=== PATIENT | female | born 1975 | race Caucasian/White ===

== ENCOUNTER 2018-04-26 18:56 | Inpatient (IN) | payer OTHER ==
[~2018-04-26] VITALS: Ht 172.7 cm; Wt 115.8 kg
[2018-04-26] MEDS ORDERED: WELLBUTRIN (19:24)
[2018-04-26] MEDS ORDERED: PROPANOLOL (19:24)
[2018-04-26] MEDS ORDERED: NORTRIPTYLINE (19:24)
[2018-04-26] MEDS ORDERED: MAXALT (19:24)
[2018-04-26] MEDS ORDERED: GABAPENTIN (19:24)
[2018-04-26 20:15] LABS: BASOPHILS # (AUTO) 0.1 K/uL (0.0-8.0); EOSINOPHILS # (AUTO) 0.3 K/uL (0.0-0.7); EOSINOPHILS % (AUTO) 4.5 % (0.0-7.0); HEMATOCRIT 37.5 % (31.2-41.9); HEMOGLOBIN 12.7 g/dL (10.9-14.3); LYMPHOCYTES # (AUTO) 2.2 K/uL (20.0-40.0); LYMPHOCYTES % (AUTO) 37.3 % (20.5-51.5); MEAN CORPUSCULAR HEMOGLOBIN 29.8 uug (24.7-32.8); MEAN CORPUSCULAR HGB CONC 34 g/dL (32.3-35.6); MONOCYTES # (AUTO) 0.4 K/uL (2.0-10.0); MONOCYTES % (AUTO) 7.1 % (0.0-11.0); NEUTROPHILS # (AUTO) 2.9 K/uL (1.8-8.9); NEUTROPHILS % (AUTO) 50.1 % (38.5-71.5); PLATELET COUNT (AUTO) 209 K/uL (179-408); RED BLOOD CELL COUNT(AUTO) 4.26 MIL/uL (3.63-4.92); WHITE BLOOD COUNT (AUTO) 5.8 K/uL (3.8-11.8)
[2018-04-26 20:22] LABS: POTASSIUM 4.1 mmol/L (3.5-5.1)
[2018-04-26 20:34] LABS: BILIRUBIN,DIRECT 0.1 mg/dL (0.0-0.2); BILIRUBIN,TOTAL 0.3 mg/dL (0.2-1.0); TOTAL PROTEIN, SERUM 7.2 g/dL (6.4-8.2)
[2018-04-26] MEDS ORDERED: ASPIRIN 325 MG TABLET PO ONE (21:00)
[2018-04-26] MEDS ORDERED: FUROSEMIDE 20 MG/2 ML VIAL IV ONE (21:30)
[2018-04-26] MEDS ORDERED: ENOXAPARIN SODIUM 100 MG/ML DISP.SYRIN SQ ONE ×2 (21:45→22:04)
[2018-04-26] MEDS ORDERED: NORMAL SALINE FLUSH 10 ML DISP.SYRIN ONE (22:02)
[2018-04-26] MEDS ORDERED: IOHEXOL 350 100 ML INFUS..BTL ONE (22:02)
[2018-04-26] MEDS ORDERED: IV NORMAL SALINE 250 ML IV ONE (22:02)
[2018-04-26] MEDS ORDERED: SWABABLE VALVE TRANSFER SET EA MC ONE (22:02)
[2018-04-26] MEDS ORDERED: FUROSEMIDE 20 MG/2 ML VIAL ONE (22:04)
[2018-04-26] MEDS ORDERED: ASPIRIN 325 MG TABLET ONE (22:04)
--- NOTE | 2018-04-26 22:28 | NUR ---
Pt went down to radiology dept for CTA.
--- NOTE | 2018-04-26 23:24 | NUR ---
Pt. admitted to Telemetry , under care of Mariama QIUNTEROS. Diagnosis: Non-STEMI elevation [place] Belongs List completed.
[2018-04-26] MEDS ORDERED: MAGNESIUM HYDROXIDE 30 ML LIQUID UDC PO PRN (23:45)
[2018-04-26] MEDS ORDERED: ACETAMINOPHEN 325 MG TABLET PO PRN (23:45)
[2018-04-26] MEDS ORDERED: MORPHINE SULFATE 4 MG/1 ML DISP.SYRIN IV PRN (23:45)
[2018-04-26] MEDS ORDERED: NITROGLYCERIN 0.4 MG/TAB BOTTLE SL PRN (23:45)
[2018-04-26] MEDS ORDERED: ONDANSETRON 4 MG/2 ML VIAL IV PRN (23:45)
[2018-04-26] MEDS ORDERED: HYDROCODONE/APAP 5-325MG TABLET PO PRN (23:45)
--- NOTE | 2018-04-27 00:04 | NUR ---
Pt transferred to Tele unit in stable condition. All belongings with pt.
--- NOTE | 2018-04-27 00:05 | NUR ---
RECEIVED ADMISSION REPORT FROM KARTIK ESTEVEZ, IN ER. PT ARRIVED ON TELE FLOOR VIA W/C. PT IS A/OX4, NO COMPLAINTS AT THIS TIME. PT IS STABLE, V/S WNL. SELF-AMBULATED TO BED. NSR ON TELE MONITORING. PT'S BOYFRIEND IS CURRENTLY AT BEDSIDE. BED IN LOW AND LOCKED POSITION WITH BILATERAL SIDERAILS UP. CALL LIGHT WITHIN REACH. PT ORIENTED TO UNIT. WILL CONTINUE TO MONITOR.
[2018-04-27 00:37] VITALS: BP 116/85
[2018-04-27 04:32] VITALS: BP 107/61
--- NOTE | 2018-04-27 06:52 | NUR ---
PT SLEPT COMFORTABLY THROUGH THE NIGHT. NO COMPLAINTS. V/S WNL. NSR ON TELE MONITORING. PT'S TREND TROPONIN AT 0100 WAS 0.144. NELI EDWARDS IS AWARE. PT DENIES C/P, SOB. WILL CONTINUE TO MONITOR.
--- NOTE | 2018-04-27 07:10 | NUR ---
Received patient in bed, awake, alert and oriented x4, in no acute distress. Denies chest pain or SOB at this time. IV site on LAC intact. NSR on monitor.
[2018-04-27 08:16] LABS: BASOPHILS # (AUTO) 0.1 K/uL (0.0-8.0); BASOPHILS % (AUTO) 0.9 % (0.0-2.0); EOSINOPHILS # (AUTO) 0.3 K/uL (0.0-0.7); EOSINOPHILS % (AUTO) 4.7 % (0.0-7.0); HEMATOCRIT 36.1 % (31.2-41.9); HEMOGLOBIN 12.2 g/dL (10.9-14.3); LYMPHOCYTES # (AUTO) 2.4 K/uL (20.0-40.0); LYMPHOCYTES % (AUTO) 41.1 % (20.5-51.5); MEAN CORPUSCULAR HEMOGLOBIN 29.7 uug (24.7-32.8); MEAN CORPUSCULAR HGB CONC 34 g/dL (32.3-35.6); MEAN CORPUSCULAR VOLUME 88.1 fL (75.5-95.3); MONOCYTES # (AUTO) 0.6 K/uL (2.0-10.0); MONOCYTES % (AUTO) 9.9 % (0.0-11.0); NEUTROPHILS # (AUTO) 2.6 K/uL (1.8-8.9); NEUTROPHILS % (AUTO) 43.4 % (38.5-71.5); PHOSPHOROUS 4.4 mg/dL (2.5-4.9); PLATELET COUNT (AUTO) 188 K/uL (179-408); POTASSIUM 3.7 mmol/L (3.5-5.1); WHITE BLOOD COUNT (AUTO) 5.9 K/uL (3.8-11.8)
[2018-04-27] MEDS ORDERED: ASPIRIN 81 MG TAB.CHEW PO SCH (09:00)
--- NOTE | 2018-04-27 11:00 | NUR ---
Dr. kirkpatrick here to see patient, per MD frey patient to DC.
[2018-04-27 11:20] VITALS: BP 98/50
[2018-04-27] MEDS ORDERED: ATOR10TA PO (11:56)
[2018-04-27] MEDS ORDERED: ASPI81TA31 PO (11:56)
--- NOTE | 2018-04-27 12:27 | NUR ---
Patient scheduled for discharge home today. Denies chest pain or SOB. Discharge instructions given to patient, unable to set up follow up appointment with PCP due to the weekend. Patient stated she will follow up and make appointment on Sunday. Prescriptions given to patient, able to verbalized understanding. IV site was discontinued. No s/s of bleeding noted
--- NOTE | 2018-04-27 13:19 | NUR ---
Left the hospital in stable condition
[2018-04-27] MEDS ORDERED: ATORVASTATIN 10 MG TABLET PO SCH (21:00)
== END 2018-04-27 13:22 | disposition home or self-care (01) | DRG 190 ==
LOC: ER 18:58 → TELE 23:41
PROVIDERS: ADMIT Nurse Practitioner Acute Care; ATTEND Nurse Practitioner Acute Care
DX: I21.4 Non-ST elevation (NSTEMI) myocardial infarction (principal); K76.0 Fatty (change of) liver, not elsewhere classified; G43.909 Migraine, unspecified, not intractable, without status migrainosus; R60.0 Localized edema; Z82.49 Family history of ischemic heart disease and other diseases of the circulatory system; I87.2 Venous insufficiency (chronic) (peripheral); Z79.82 Long term (current) use of aspirin; Z68.35 Body mass index [BMI] 35.0-35.9, adult; E66.9 Obesity, unspecified; E78.5 Hyperlipidemia, unspecified; R79.1 Abnormal coagulation profile; F32.9 Major depressive disorder, single episode, unspecified; F41.9 Anxiety disorder, unspecified
CPT/HCPCS: 36415; 70030-TC; 71045; 71275; 83735; 84100; 84443; 84703; 85025; 85730; 93005; 93307; A4663; J1650; J1940; J3490; J7050; Q9967

== ENCOUNTER 2018-10-06 15:13 | Emergency (ER) | payer OTHER ==
[~2018-10-06] VITALS: Ht 172.7 cm; Wt 113.4 kg
[~2018-10-06 15:13] MED LIST: ASPI81TA31 PO; ATOR10TA PO; GABAPENTIN; MAXALT; NORTRIPTYLINE; PROPANOLOL; WELLBUTRIN
--- NOTE | 2018-10-06 15:42 | NUR ---
PT IS IN ROOM #2B. DR LAYTON EVALUATED THE PT.
--- NOTE | 2018-10-06 15:42 | NUR ---
PT WAS D/C'd TO HOME. D/C INSTRUCTIONS GIVEN TO THE PT.
[2018-10-06 15:43] VITALS: BP 132/78
== END 2018-10-06 15:44 | disposition home or self-care (01) ==
LOC: ER 15:15
DX: L01.00 Impetigo, unspecified (principal); Z79.82 Long term (current) use of aspirin; Z79.899 Other long term (current) drug therapy
CPT/HCPCS: A4663

== ENCOUNTER 2019-09-12 00:42 | Inpatient (IN) | END 2019-09-13 13:20 | disposition home or self-care (01) | DRG 145 | DX: J20.9 Acute bronchitis, unspecified (principal); E66.01 Morbid (severe) obesity due to excess calories; K80.20 Calculus of gallbladder without cholecystitis without obstruction; Z68.38 Body mass index [BMI] 38.0-38.9, adult; Z71.3 Dietary counseling and surveillance; E78.5 Hyperlipidemia, unspecified; E78.1 Pure hyperglyceridemia; Z82.49 Family history of ischemic heart disease and other diseases of the circulatory system; G89.29 Other chronic pain; M54.9 Dorsalgia, unspecified; R79.89 Other specified abnormal findings of blood chemistry; G43.909 Migraine, unspecified, not intractable, without status migrainosus; Z91.19 Patient's noncompliance with other medical treatment and regimen ==

== ENCOUNTER 2019-10-20 20:52 | Emergency (ER) | payer OTHER ==
[~2019-10-20] VITALS: Ht 172.7 cm; Wt 99.8 kg
[~2019-10-20 20:52] MED LIST changes: -ASPI81TA31 PO; -ATOR10TA PO; +BUPR300T52 PO; -GABAPENTIN; +HYDR-4354 PO; -MAXALT; +NORT75CA PO; -NORTRIPTYLINE; +PANT40TA2 PO; -PROPANOLOL; -WELLBUTRIN; +ZOLP10TA2 PO
--- NOTE | 2019-10-20 21:06 | NUR ---
Dr. Bosch at bedside for MSE.
[2019-10-20] MEDS ORDERED: HYDROMORPHONE 1 MG/1 ML DISP.SYRIN IV ONE ×2 (21:15→22:00)
[2019-10-20] MEDS ORDERED: IV NORMAL SALINE 1000 ML BAG IV ONE (21:15)
[2019-10-20] MEDS ORDERED: ONDANSETRON 4 MG/2 ML VIAL IV ONE ×2 (21:15→22:00)
--- NOTE | 2019-10-20 21:16 | NUR ---
Pt provided urine sample, sent to lab.
[2019-10-20] MEDS ORDERED: HYDROMORPHONE 1 MG/1 ML DISP.SYRIN ONE ×2 (21:21→21:54)
[2019-10-20] MEDS ORDERED: ONDANSETRON 4 MG/2 ML VIAL ONE ×2 (21:21→21:54)
[2019-10-20 21:33] LABS: BASOPHILS % (AUTO) 0.4 % (0.0-2.0); CREATININE 0.9 mg/dL (0.6-1.3); EOSINOPHILS # (AUTO) 0.2 K/uL (0.0-0.7); EOSINOPHILS % (AUTO) 1.3 % (0.0-7.0); HEMATOCRIT 40.7 % (31.2-41.9); HEMOGLOBIN 13.6 g/dL (10.9-14.3); LYMPHOCYTES # (AUTO) 1.7 K/uL (20.0-40.0); LYMPHOCYTES % (AUTO) 14.7 % (20.5-51.5); MEAN CORPUSCULAR HEMOGLOBIN 29.9 uug (24.7-32.8); MEAN CORPUSCULAR HGB CONC 34 g/dL (32.3-35.6); MEAN CORPUSCULAR VOLUME 89.1 fL (75.5-95.3); MONOCYTES % (AUTO) 8.9 % (0.0-11.0); NEUTROPHILS # (AUTO) 8.7 K/uL (1.8-8.9); NEUTROPHILS % (AUTO) 74.7 % (38.5-71.5); PLATELET COUNT (AUTO) 215 K/uL (179-408); POTASSIUM 3.3 mmol/L (3.5-5.1); RED BLOOD CELL COUNT(AUTO) 4.57 MIL/uL (3.63-4.92); WHITE BLOOD COUNT (AUTO) 11.6 K/uL (3.8-11.8)
[2019-10-20 21:34] LABS: *BILIRUBIN,URIN NEGATIVE (NEGATIVE); *BLOOD, URINE NEGATIVE (NEGATIVE); *CLARITY,URINE CLEAR (CLEAR); *COLOR,URINE DARK YELLOW (YELLOW); *KETONES,URINE NEGATIVE (NEGATIVE); LEUKOCYTE ESTERASE ,URINE NEGATIVE (NEGATIVE); NITRITE, URINE NEGATIVE (NEGATIVE); PH,URINE 6.5 (5.0-8.0); UGLUCOSE NEGATIVE (NEGATIVE)
[2019-10-20 21:35] LABS: *URINE HCG, QUAL NEGATIVE (NEGATIVE); BACTERIA,URINE NONE SEEN /HPF (NONE SEEN); MUCUS,URINE FEW /LPF (0-FEW); RBC,URINE 0-3 /HPF (0-3); SQUAMOUS EPITHELIAL CELL,UR FEW /HPF (NONE SEEN); WBC,URINE 0-3 /HPF (0-3)
[2019-10-20 21:39] LABS: BILIRUBIN,DIRECT 0.1 mg/dL (0.0-0.2); BILIRUBIN,TOTAL 0.5 mg/dL (0.2-1.0); TOTAL PROTEIN, SERUM 7.7 g/dL (6.4-8.2)
--- NOTE | 2019-10-20 21:41 | NUR ---
Pepe mckeon in ED - 10/20/[address] at [address] Bosch at [facility] for MSE.
--- NOTE | 2019-10-20 21:51 | NUR ---
Ultrasound at bedside. Patient's pain is lowered to 5-6 but wants more pain medication, MD notified.
--- NOTE | 2019-10-20 22:29 | NUR ---
Patient discharged to home in stable conditon. Written and verbal after care instructions given. Patient verbalizes understanding of instructions. Pt ambulated out of ER with steady gait, no acute signs of distress, VSS, all belongings taken.
[2019-10-20 22:30] VITALS: BP 145/70
== END 2019-10-20 22:30 | disposition home or self-care (01) ==
LOC: ER 20:52
DX: K80.20 Calculus of gallbladder without cholecystitis without obstruction (principal); F41.9 Anxiety disorder, unspecified; F32.9 Major depressive disorder, single episode, unspecified; Z79.899 Other long term (current) drug therapy
CPT/HCPCS: 36415; 76705; 80048; 80076; 81000; 81001; 83690; 84703; 85025; 96374; 96375; 96376; 99284; J1170 ×2; J2405 ×2; A4663; J7030